=== PATIENT | female | born 1980 | race Caucasian/White ===

== ENCOUNTER 2023-12-07 10:21 | Emergency (ER) | payer BC ==
[~2023-12-07] VITALS: Ht 152.4 cm; Wt 79.4 kg
[2023-12-07 10:50] VITALS: BP 116/75; PULSE 81; RESP 18; TEMP 98.4; O2SAT 97
[2023-12-07] MEDS ORDERED: KETOROLAC 30 MG/ML VIAL IM ONE (12:55)
[2023-12-07] MEDS ORDERED: NAPR-1559 PO (12:56)
[2023-12-07] MEDS ORDERED: LID5T TP (12:56)
[2023-12-07 14:18] VITALS: BP 120/86; PULSE 80; RESP 20; TEMP 97.9; O2SAT 98
== END 2023-12-07 18:22 | disposition home or self-care (01) ==
LOC: MED 10:21
DX: M77.12 Lateral epicondylitis, left elbow (principal); Z79.899 Other long term (current) drug therapy; Z88.5 Allergy status to narcotic agent
CPT/HCPCS: 73080; 96372; 99283; J1885